=== PATIENT | female | born 1950 | race Caucasian/White ===

== ENCOUNTER → 2016-08-01 | Outpatient (CLI) | payer OTHER ==
[~2016-08-01] MED LIST: ASPI81TA28 PO; BETA0.1L2 TD; CITA10TA4 PO; ERYTTAB PO; ONDA8TAB12 PO; PRLSR20 PO; PROC1TAB5 PO; TRAM-10 PO; TRAZ50TA35 PO
--- NOTE | 2016-08-01 16:46 | MAMMOGRAPHY REPORT ---
BILATERAL DIGITAL SCREENING MAMMOGRAM WITH CAD: 08/01/2016 CLINICAL HISTORY: Routine screening. Patient has no complaints. TECHNIQUE: Bilateral CC and MLO views were obtained. Current study was also evaluated with a Comput er Aided Detection (CAD) system. COMPARISON: Comparison is made to exams dated: 07/30/2015 mammogram, 07/29/2014 mammogram, 07/25/2013 chela mogram, 07/18/2012 mammogram, 06/29/2011 mammogram, and 06/27/2010 ultrasound - [facility] ter. BREAST COMPOSITION: There are scattered areas of fibroglandular density in both breasts. FINDINGS: There are mild vascular calcifications in the breasts. No suspicious mass, architectural distortion or cluster of microcalcifications is seen. IMPRESSION: ACR BI-RADS CATEGORY 1: NEGATIVE There is no mammographic evidence of malignancy. A 1 year screening mammogram is recommended. The p atient will receive written notification of the results. Approximately 10% of breast cancers are not detected with mammography. A negative mammographic repor t should not delay biopsy if a clinically suggestive mass is present. Mellisa Miles M.D. ay/:08/01/2016 15:49:49 Medical Technologist: Adina GILES(Loraine)(Kavon), [facility] letter sent: Normal 1/2 BI-RADS Code: ACR BI-RADS Category 1: Negative
== END | disposition home or self-care (01) ==
LOC: C.MAMM 09:51
PROVIDERS: ATTEND Family Medicine
DX: Z12.31 Encounter for screening mammogram for malignant neoplasm of breast (principal)

== ENCOUNTER → 2016-10-26 | Outpatient (CLI) | payer OTHER ==
--- NOTE | 2016-10-26 09:21 | DIAGNOSTIC IMAGING REPORT ---
A-PORT CHECK CLINICAL HISTORY: Pain at the infusion port site following recent treatment. COMPARISON STUDY: Infusion port check dated 07/01/2014. Fluoroscopy time: 0.1 minutes. FINDINGS: A office sweeper fluoroscopic image shows a left subclavian central infusion port in place. The catheter appears intact and the tip projects over the SVC. Infusion port check was then performed following the injection of approximately 30 cc of Optiray 300 through the port. There is no extravasation. There is no evidence of catheter fracture or fibrin sheath. There is appropriate contrast filling of the superior vena cava. IMPRESSION: Normal infusion port check. The catheter is patent with no evidence of extravasation or fibrin sheath. Electronically signed by: Jelani Gavin M.D. 10/26/2016 9:20 AM Dictated Date/Time: 10/26/2016 9:17 AM
== END | disposition home or self-care (01) ==
LOC: C.RAD 08:23
PROVIDERS: ATTEND Internal Medicine Hematology & Oncology
DX: D80.1 Nonfamilial hypogammaglobulinemia (principal)

== ENCOUNTER → 2016-12-15 | Outpatient (CLI) | payer OTHER ==
[2016-12-20 00:46] LABS: ANTI-CENTROMERE AB <1.0 NEG AI (<1.0 NEG); ANTI-SS-A <1.0 NEG AI (<1.0 NEG); ANTI-SS-B <1.0 NEG AI (<1.0 NEG); DNA ds CRITHIDIA NEGATIVE (NEGATIVE); Sm Antibody <1.0 NEG AI (<1.0 NEG)
== END | disposition home or self-care (01) ==
LOC: C.LAB1850 10:01
PROVIDERS: ATTEND Internal Medicine Rheumatology
DX: M35.00 Sjogren syndrome, unspecified (principal); M54.5 Low back pain

== ENCOUNTER → 2017-05-24 | Outpatient (CLI) | payer OTHER ==
--- NOTE | 2017-05-24 13:03 | DIAGNOSTIC IMAGING REPORT ---
CT SCAN OF THE PARANASAL SINUSES CLINICAL HISTORY: Chronic sinusitis. COMPARISON STUDY: CT scan of the paranasal sinuses dated 10/07/2015. TECHNIQUE: High-resolution CT scan of the paranasal sinuses is performed. Images are reviewed in the axial, sagittal, and coronal planes. IV contrast was not administered for this examination. A dose lowering technique was utilized adhering to the principles of ALARA. CT DOSE: 661.11 mGy.cm FINDINGS: Maxillary antra: There is moderate mucosal thickening within air-fluid level seen in the right maxillary antrum. Trace dependent mucosal thickening is seen on the left. Anterior ethmoid sinuses: Moderate mucosal thickening seen in the right. Mild mucosal thickening is seen on the left. Posterior ethmoid sinuses: Clear bilaterally. Sphenoid sinuses: Trace mucosal thickening seen bilaterally. Frontal sinuses: Moderate mucosal thickening seen in the right. Mild mucosal thickening is seen on the left. Ostiomeatal complexes: The right ostiomeatal complex is occluded. The left ostiomeatal complex is narrowed by mucosal thickening but patent. Frontoethmoidal and sphenoethmoidal recesses: The sphenoethmoidal recesses are patent bilaterally. The frontoethmoidal recesses are occluded. Carotid arteries: The carotid arteries are protuberant but covered and without septal attachments. Ethmoid roofs: There is slightly asymmetric elevation of the right ethmoid roof as compared to the left. Nasal turbinates: Normal in appearance. Nasal septum: There is mild rightward deviation of the bony nasal septum. Optic nerves: Covered. Orbits: The bony orbits are intact. Orbital contents are normal in appearance. Calvarium: The skeletal structures are osteopenic. The imaged calvarium is normal in appearance Mastoid air cells: Well pneumatized. Brain parenchyma: Partially visualized brain parenchyma is within normal limits. IMPRESSION: Paranasal sinus disease as above. Correlate clinically for evidence of acute sinusitis. Electronically signed by: Jelani Gavin M.D. 05/24/2017 1:02 PM Dictated Date/Time: 05/24/2017 12:56 PM
== END | disposition home or self-care (01) ==
LOC: C.CTS 12:08
PROVIDERS: ATTEND Internal Medicine Hematology & Oncology
DX: D80.1 Nonfamilial hypogammaglobulinemia (principal); J01.90 Acute sinusitis, unspecified

== ENCOUNTER → 2017-06-18 | Outpatient (CLI) | payer OTHER ==
[~2017-06-18] MED LIST changes: +ASPCH81X PO; +CALC-51 PO; +KFL/250 PO
--- NOTE | 2017-06-18 09:04 | DIAGNOSTIC IMAGING REPORT ---
FUSION CT SINUSES W/O CLINICAL HISTORY: 66 years-old Female presenting with J32.9 Chronic [id number]. TECHNIQUE: Multidetector CT of the sinuses was performed without the use of intravenous contrast. IV contrast: None. A dose lowering technique was used consistent with the principles of ALARA (as low as reasonably achievable). COMPARISON: 10/07/2015. CT DOSE (mGy.cm): The estimated cumulative dose is 589.69 mGy.cm. FINDINGS: Intermediate Card Tender topogram: Unremarkable. Significant mucosal thickening of the right maxillary sinus with aerated secretions again noted. Sclerosis of the right apex or sinus holbrook. Mucosal thickening results in obstruction of the right ostiomeatal unit. The left maxillary sinus and left ostiomeatal unit are patent. Mild mucosal thickening in anterior ethmoid air cells with aerated secretions also noted more so on the left. The frontal sinuses are patent. However, the left nasofrontal ethmoidal recess is obstructed due to mucosal thickening. Sphenoid sinuses patent. Mastoid air cells patent. Trace rightward deviation of the bony nasal septum. No evidence of bony bridging or bony spurring. No bony dehiscence of the carotid siphons or optic canals. No other significant anatomic variants. Degenerative changes of the bilateral temporal mandibular joints. Orbits normal. Limited intracranial evaluation within normal limits. IMPRESSION: 1. Evidence of acute on chronic sinusitis of the right maxillary sinus. 2. Acute sinusitis of the anterior ethmoid air cells greater on the left. 3. Mucosal thickening results in obstruction of the right ostiomeatal unit and left nasal frontoethmoidal recess. 4. No significant anatomic variant. Electronically signed by: Gaudencio Love M.D. 06/18/2017 9:03 AM Dictated Date/Time: 06/18/2017 8:58 AM
== END | disposition home or self-care (01) ==
LOC: C.CTS 08:44
DX: J01.00 Acute maxillary sinusitis, unspecified (principal); J01.20 Acute ethmoidal sinusitis, unspecified; J34.89 Other specified disorders of nose and nasal sinuses

== ENCOUNTER → 2017-06-26 | Outpatient (CLI) | payer OTHER ==
[~2017-06-26] MED LIST changes: -ASPI81TA28 PO; -BETA0.1L2 TD; -ERYTTAB PO; -ONDA8TAB12 PO; -PROC1TAB5 PO; -TRAM-10 PO; -TRAZ50TA35 PO
[2017-06-26 13:10] LABS: BASO % 0.4 %; BASO ABS # 0.02 K/uL (0-0.2); EOS % 2.7 %; EOS ABS # 0.14 K/uL (0-0.5); HEMATOCRIT 40.3 % (37-47); IG# 0.01 K/uL (0.00-0.02); LYMPH % 24.1 %; LYMPH ABS # 1.26 K/uL (1.2-3.4); MEAN CELL VOLUME 91.4 fL (80-100); MEAN CORPUSCULAR HEMOGLOBIN 31.7 pg (25-34); MEAN CORPUSCULAR HGB CONC 34.7 g/dl (32-36); MEAN PLATELET VOLUME 9.2 fL (7.4-10.4); MONO % 7.6 %; PLATELET COUNT 168 K/uL (130-400); RED CELL DISTRIBUTION WIDTH CV 13.1 % (11.5-14.5); RED CELL DISTRIBUTION WIDTH SD 43.2 fL (36.4-46.3); WHITE BLOOD COUNT 5.23 K/uL (4.8-10.8)
[2017-06-26 13:17] LABS: INR 0.9 (0.9-1.1); PTT PATIENT 22.5 SECONDS (21.0-31.0)
[2017-06-26 13:37] LABS: POTASSIUM 4.4 mmol/L (3.5-5.1)
== END | disposition home or self-care (01) ==
LOC: C.LAB 11:28
DX: Z01.818 Encounter for other preprocedural examination (principal)

== ENCOUNTER → 2017-07-10 | Day surgery (SDC) | payer OTHER ==
[2017-06-21 15:11] VITALS: Ht 157.5 cm; Wt 85.5 kg
[~2017-07-10] VITALS: Ht 157.5 cm; Wt 85.5 kg
[~2017-07-10] MED LIST changes: +ATROPINE SULFATE 0.1 MG/ML 5ML SYR IV PRN; +CEFAZOLIN 2000MG IV PUSH 15 ML IV SCH; +DEXAMETHASONE SOD INJ 4 MG/ML VIAL ONE; +EpHEDrine SULFATE INJ 50 MG/ML AMP IV PRN; +EpINEphrine INJ 1MG/ML AMP 1 MG/ML AMP ONE; +FENTANYL CITRATE INJ 50 MCG/1 ML 2 ML VIAL IV PRN; +FENTANYL CITRATE INJ 50 MCG/1 ML 2 ML VIAL ONE; +GLYCOPYRROLATE INJ 0.2 MG/ML VIAL ONE; +HYDROCODONE/ACETAMIN 5/325MG TAB PO PRN; +LACTATED RINGER'S 1000ML 1,000 ML IV SCH; +LIDOCAINE 4% MPF SOAK 5 ML = 1 DOSE TOP ONE; +LIDOCAINE HCL 2% 2 ML VIAL (20MG/ML) ONE; +LIDOCAINE HCL 4% TOP 50 ML VIAL EXT ONE; +LIDOCAINE/EPINEPHRINE 1% 20 ML VIAL ONE; +MIDAZOLAM HCL 1 MG/ML 2ML VIAL ONE; +NEOSTIGMINE METHYLSULFATE 5 MG/5 ML SYR ONE; +ONDANSETRON INJ 2 MG/ML 2 ML VIAL IV PRN; +ONDANSETRON INJ 2 MG/ML 2 ML VIAL ONE; +OXYMETAZOLINE HCL 0.05% NA SPR 15 ML BTL PRN; +OXYMETAZOLINE HCL 0.05% NA SPR 15 ML BTL SCH; +PROPOFOL IV EMULSION 10 MG/ML 20 ML VIAL IV ONE; +TRIAMCINOLONE ACET 40 MG/ML VIAL ONE
--- NOTE | 2017-07-10 10:17 | History & Physical Bridge - SC ---
H&P Re-Evaluation Bridge Note: I have examined the patient, reviewed the History & Physical and in the interval since the performance of the History & Physical I have noted the following changes of clinical significance: No changes noted
--- NOTE | 2017-07-10 13:39 | [facility] Operative Report ---
Operative Report Operative Date Jul 10, 2017. Pre-Operative Diagnosis Chronic sinusitis Nasal septal deviation Hypertrophy of both inferior nasal turbinates Post-Operative Diagnosis Same as pre-op Procedure(s) Performed Image Guided Bilateral Endoscopic Sinus Surgery, Septoplasty, Bilateral Inferior Turbinate Reduction Surgeon Boat Loader Helper Surgeon(s) None Estimated Blood Loss 25ML Findings 1. MILD R DNS 2. MODERATE L>R ITH 3. PUS IN R MAX SINUS 4. MILD INFLAMMATION B FRONTAL/ETHMOID/MAXILLARY SINUSES WITH MORE SEVERE POLYPOID INFLAMMATION IN R MAX SINUS Specimens None Anesthesia Type General I attest to the content of the Intraoperative Record and any orders documented therein. Any exceptions are noted below.
--- NOTE | 2017-07-10 13:42 | Discharge Instructions ---
Discharge Instructions Date of Service Jul 10, 2017. Admission Reason for Admission: Chronic Sinusitis, Nasal Septal Deviation, Hypertr Discharge Discharge Diagnosis / Problem: SAME Discharge Goals Goal(s): Therapeutic intervention Activity Recommendations Activity Limitations: as noted below LIGHT ACTIVITY AND NO NOSE BLOWING FOR 2 WEEKS; NO DRIVING WHILE ON NORCO . Current Hospital Diet Patient's current hospital diet: Discharge Diet Recommended Diet: Regular Diet Procedures Procedures Performed: Image Guided Bilateral Endoscopic Sinus Surgery, Septoplasty, Bilateral Inferior Turbinate Reduction Pending Studies Studies pending at discharge: no Medical Emergencies . Who to Call and When: Medical Emergencies: If at any time you feel your situation is an emergency, please call 911 immediately. . Non-Emergent Contact Non-Emergency issues call your: Surgeon . . "Provider Documentation" section prepared by Ismael Blanco. .
--- NOTE | 2017-07-10 14:25 | OPERATIVE REPORT ---
DATE OF OPERATION: 07/10/2017 PREOPERATIVE DIAGNOSES: 1. Chronic rhinosinusitis. 2. Right septal deviation. 3. Left greater than right inferior turbinate hypertrophy. POSTOPERATIVE DIAGNOSES: 1. Chronic rhinosinusitis. 2. Right septal deviation. 3. Left greater than right inferior turbinate hypertrophy. PROCEDURES: SmashCharttronic fusion image guided bilateral endoscopic sinus surgery consisting of: 1. Bilateral maxillary antrostomies. 2. Bilateral complete ethmoidectomies. 3. Bilateral balloon sinuplasty assisted frontal sinusotomies. 4. Septoplasty. 5. Bilateral inferior turbinate outfracture and turbinoplasties. SURGEON: Dr. Blanco. ANESTHESIA: General endotracheal. ESTIMATED BLOOD LOSS: 25 mL. FINDINGS: 1. Mild right septal deviation. 2. Moderate left greater than right inferior turbinate hypertrophy. 3. Pus within the right maxillary sinus with severe polypoid mucosal thickening. 4. Mild mucosal thickening involving the left maxillary, bilateral ethmoid, and bilateral frontal sinuses. SPECIMENS: None. COMPLICATIONS: None. INDICATIONS FOR THE PROCEDURE: The patient is a pleasant 66-year-old female with a history of recurrent acute and chronic sinusitis which has been refractory to maximal medical therapy including systemic antibiotics and steroids. A posttreatment fusion CT scan of the sinuses revealed right greater than left maxillary sinusitis, mild bilateral ethmoid sinus disease, and mild bilateral inferior frontal sinus mucosal thickening. In addition, she has mild right septal deviation and moderate left greater than right inferior turbinate hypertrophy. She presents for the above-mentioned procedures on an outpatient elective basis. DESCRIPTION OF PROCEDURE: After informed consent had been obtained from the patient, the patient was wheeled to the operating room and placed on the operating table in supine position. Monitors were placed. After induction of general endotracheal anesthesia, the patient was prepped in the usual fashion for image guided bilateral endoscopic sinus surgery. The Fliplingo fusion headset was placed over the forehead and was registered, verified, and calibrated and used throughout the sinus surgery but especially for the frontal sinus portions. Lidocaine and epinephrine pledgets were placed in the bilateral nasal cavities and pressure applied. The left-sided pledgets were removed. A freer elevator was used to medialize the left middle turbinate. The uncinate process, lateral nasal wall, and left middle turbinate were injected with 1% lidocaine with 1:100,000 epinephrine. A lidocaine and epinephrine pledget was then placed into the left middle meatus. The right side was addressed in a similar fashion with similar intraoperative findings. The left side pledget was removed. An uncinatectomy was performed using a freer elevator, straight Misael-Cut forceps, and powered instrumentation. The natural ostium of the left maxillary sinus was identified and this was enlarged anteriorly, inferiorly, and posteriorly using backbiting forceps and powered instrumentation. A complete ethmoidectomy was then performed using powered instrumentation. Using the curved frontal sinus suction, left frontal sinus was cannulated. After this was performed, a size #6 frontal sinus balloon was inserted into the left frontal recess tract and dilated to 12 atmospheres of pressure in 3 different locations to dilate the left frontal recess tract. Polypoid mucosal thickening was then removed using powered instrumentation. A lidocaine and epinephrine pledget was then placed in the left ethmoid cavity. The right side was then addressed in a similar fashion; however, on this side, there was purulence and severe polypoid mucosal thickening involving the right maxillary sinus. The nasal septum was then injected with 1% lidocaine with 1:100,000 epinephrine. After allowing adequate time for vasoconstriction, a #15 scalpel was used to make a right Carmen incision through which the right-sided mucoperichondrial and mucoperiosteal flap was elevated. A #15 scalpel was then used to incise the quadrangular cartilages care to preserve a 1.5 cm dorsal and caudal strut and the left-sided mucoperichondrial and mucoperiosteal flap was elevated through this cartilaginous incision. Deviated portions of the quadrangular cartilage was then removed using a Kel knife. A V-shaped osteotome, mallet, and Abdelrahman forceps was then used to remove a bony septal spur which was impinging on the airway posteriorly and inferiorly on the right hand side. The septal cavity was then suctioned. The septum was found to be midline. The Norm incision and mucoperichondrial mucosal flaps were then closed using a 4-0 plain gut suture on a Eliel needle in a quilting stitch fashion. A Martino elevator was then used to infracture and subsequently outfracture the inferior turbinates bilaterally. The inferior turbinates were injected with 1% lidocaine with 1:100,000 epinephrine. A 2.0 mm turbinate blade using powered instrumentation was then used to perform bilateral inferior turbinoplasties in a submucosal fashion. The sinonasal cavities were then suctioned. Merogel was then placed into the bilateral ethmoid cavity/middle meati. An orogastric tube was placed and the stomach was suctioned free of air and stomach contents. This marked the end of the case. The patient tolerated the procedure well. There were no apparent complications. The patient was extubated and transferred to recovery room in stable condition. I attest to the content of the Intraoperative Record and any orders documented therein. Any exception s are noted below.
[2017-07-10 14:44] VITALS: TEMP 36.4
--- NOTE | 2017-07-10 15:04 | Anesthesiology Progress Note ---
Anesthesia Post Op Note Date & Time Jul 10, 2017 at 15:03 Vital Signs Pain Intensity: 5 Vital Signs Past 12 Hours Date Time Temp Pulse Resp B/P (MAP) Pulse Ox O2 Delivery O2 Flow Rate FiO2 07/10/17 14:44 36.4 61 16 07/10/17 14:44 61 16 96 07/10/17 14:41 135/64 07/10/17 14:39 67 18 92 07/10/17 14:39 67 18 07/10/17 14:36 144/66 07/10/17 14:34 59 21 99 07/10/17 14:34 58 21 07/10/17 14:31 140/69 07/10/17 14:29 63 16 07/10/17 14:29 64 16 100 07/10/17 14:26 148/72 07/10/17 14:24 68 28 100 07/10/17 14:24 68 28 07/10/17 14:21 147/70 07/10/17 14:19 79 14 07/10/17 14:19 79 14 100 07/10/17 14:16 147/71 07/10/17 14:15 143/90 07/10/17 14:14 81 100 07/10/17 14:14 81 07/10/17 14:14 36.3 80 20 143/90 100 Mask 6 07/10/17 09:22 36.6 73 18 137/81 (99) 97 Room Air Notes Mental Status: alert / awake / arousable, participated in evaluation Pt Amnestic to Procedure: Yes Nausea / Vomiting: adequately controlled Pain: adequately controlled Airway Patency, RR, SpO2: stable & adequate BP & HR: stable & adequate Hydration State: stable & adequate Anesthetic Complications: no major complications apparent Patient had some mild weakness at end of case due to residual neuromuscular blockade but was fully reversed and extubated, had no respiratory distress, no dysphagia, and was quite strong on discharge.
[2017-07-10 15:31] VITALS: BP 142/85; PULSE 61; O2SAT 96
== END | disposition home or self-care (01) ==
LOC: X.SURG 09:08
DX: J32.8 Other chronic sinusitis (principal); J34.2 Deviated nasal septum; J34.3 Hypertrophy of nasal turbinates; E78.5 Hyperlipidemia, unspecified; Z87.891 Personal history of nicotine dependence; Z98.890 Other specified postprocedural states; Z79.82 Long term (current) use of aspirin; Z79.899 Other long term (current) drug therapy; Z85.6 Personal history of leukemia; Z82.49 Family history of ischemic heart disease and other diseases of the circulatory system; Z82.3 Family history of stroke

== ENCOUNTER → 2017-08-03 | Outpatient (CLI) | payer OTHER ==
[~2017-08-03] MED LIST changes: -ASPCH81X PO; -ATROPINE SULFATE 0.1 MG/ML 5ML SYR IV PRN; -CEFAZOLIN 2000MG IV PUSH 15 ML IV SCH; -DEXAMETHASONE SOD INJ 4 MG/ML VIAL ONE; -EpHEDrine SULFATE INJ 50 MG/ML AMP IV PRN; -EpINEphrine INJ 1MG/ML AMP 1 MG/ML AMP ONE; -FENTANYL CITRATE INJ 50 MCG/1 ML 2 ML VIAL IV PRN; -FENTANYL CITRATE INJ 50 MCG/1 ML 2 ML VIAL ONE; -GLYCOPYRROLATE INJ 0.2 MG/ML VIAL ONE; -HYDROCODONE/ACETAMIN 5/325MG TAB PO PRN; -KFL/250 PO; -LACTATED RINGER'S 1000ML 1,000 ML IV SCH; -LIDOCAINE 4% MPF SOAK 5 ML = 1 DOSE TOP ONE; -LIDOCAINE HCL 2% 2 ML VIAL (20MG/ML) ONE; -LIDOCAINE HCL 4% TOP 50 ML VIAL EXT ONE; -LIDOCAINE/EPINEPHRINE 1% 20 ML VIAL ONE; -MIDAZOLAM HCL 1 MG/ML 2ML VIAL ONE; -NEOSTIGMINE METHYLSULFATE 5 MG/5 ML SYR ONE; -ONDANSETRON INJ 2 MG/ML 2 ML VIAL IV PRN; -ONDANSETRON INJ 2 MG/ML 2 ML VIAL ONE; -OXYMETAZOLINE HCL 0.05% NA SPR 15 ML BTL PRN; -OXYMETAZOLINE HCL 0.05% NA SPR 15 ML BTL SCH; -PROPOFOL IV EMULSION 10 MG/ML 20 ML VIAL IV ONE; -TRIAMCINOLONE ACET 40 MG/ML VIAL ONE
--- NOTE | 2017-08-07 08:42 | MAMMOGRAPHY REPORT ---
BILATERAL DIGITAL SCREENING MAMMOGRAM TOMOSYNTHESIS WITH CAD: 08/03/2017 CLINICAL HISTORY: Routine screening. TECHNIQUE: Breast tomosynthesis in addition to standard 2D mammography was performed. Current study was also evaluated with a Computer Aided Detection (CAD) system. COMPARISON: Comparison is made to exams dated: 08/01/2016 mammogram, 07/30/2015 mammogram, 07/29/2014 chela mogram, 07/25/2013 mammogram, 07/18/2012 mammogram, and 06/29/2011 mammogram - [facility] BREAST COMPOSITION: There are scattered areas of fibroglandular density in both breasts. FINDINGS: No suspicious masses, calcifications, or areas of architectural distortion are noted in ei ther breast. There has been no significant interval change compared to prior exams. Scattered bilater al benign-appearing calcifications are not significantly changed. IMPRESSION: ACR BI-RADS CATEGORY 2: BENIGN There is no mammographic evidence of malignancy. A 1 year screening mammogram is recommended. The pa tient will receive written notification of the results. Approximately 10% of breast cancers are not detected with mammography. A negative mammographic report should not delay biopsy if a clinically suggestive mass is present. Sherrie Hussein M.D. /:08/03/2017 14:32:31 Homicide Investigator: Haley GILES(R)(M), [facility] letter sent: Normal 1/2 BI-RADS Code: ACR BI-RADS Category 2: Benign
== END | disposition home or self-care (01) ==
LOC: C.MAMM 09:43
PROVIDERS: ATTEND Family Medicine
DX: Z12.31 Encounter for screening mammogram for malignant neoplasm of breast (principal)

== ENCOUNTER 2019-04-11 14:28 | Observation (INO) ==
[2019-04-11] MEDS ORDERED: ASPIRIN CHEW 324 MG PO STA (14:43)
[2019-04-11 14:52] LABS: Basophils # (auto) 0.04 K/uL (0-0.2); Basophils % (auto) 0.8 %; Eosinophils # (auto) 0.14 K/uL (0-0.5); Eosinophils % (auto) 2.8 %; Hematocrit (blood only) 37.7 % (37-47); Hemoglobin 13.2 g/dL (12.0-16.0); Immature Granulocytes # (auto) 0.01 K/uL (0.00-0.02); Immature Granulocytes % (auto) 0.2 %; Lymphocytes % (auto) 31.9 %; Mean Corpuscular Volume 91.3 fL (80-100); Mean Platelet Volume 8.8 fL (7.4-10.4); Monocytes # (auto) 0.39 K/uL (0.11-0.59); Monocytes % (auto) 7.8 %; Neutrophils # (auto) 2.83 K/uL (1.4-6.5); Neutrophils % (auto) 56.5 %; Platelet Count 186 K/uL (130-400); RDW Coefficient of Variation 13.2 % (11.5-14.5); RDW Standard Deviation 44.3 fL (36.4-46.3); Red Blood Count 4.13 M/uL (4.2-5.4); White Blood Count 5.01 K/uL (4.8-10.8)
[2019-04-11 15:06] LABS: Partial Thromboplastin Ratio 0.8; Partial Thromboplastin Time 22.8 Seconds (21.0-31.0); Prothrombin Time 9.9 Seconds (9.0-12.0)
[2019-04-11 15:08] LABS: BUN Creatinine Ratio 22.5 (10-20); Blood Urea Nitrogen 23 mg/dl (7-18); Calcium 9.2 mg/dl (8.5-10.1); Carbon Dioxide 27 mmol/L (21-32); Chloride 110 mmol/L (98-107); Creatinine Clr Calc Pharmacy 48.9 ml/min; Est GFR (African American) 64.5; Est GFR (Non-African American) 55.7; Glucose 81 mg/dl (70-99); Lipase 211 U/L (73-393); Potassium 3.5 mmol/L (3.5-5.1); Sodium 141 mmol/L (136-145)
[2019-04-11 15:13] LABS: Troponin I < 0.015 ng/ml (0-0.045)
[2019-04-11] MEDS ORDERED: OPTIRAY 320 125ml IV PRN (16:33)
--- NOTE | 2019-04-11 16:52 | CT Scan Report ---
CT angio chest PE protocol CLINICAL HISTORY: 68 years-old Female presenting with atypical chest pain, history of pulmonary embol us in. TECHNIQUE: Multidetector CT angiography of the chest was performed after administration of intravenou s contrast. 3-D volumetric and/or maximum intensity projection (MIP) images were subsequently reconst ructed for review. IV contrast: 119 mL of Optiray 320. One or more dose lowering techniques were used consistent with the principles of ALARA (as low as reasonably achievable), including automatic expos ure control, mA or kV adjustment to individual patient size, and/or use of iterative reconstruction. COMPARISON: CTA chest from 07/15/2014. CT DOSE (mGy.cm): The estimated cumulative dose is 274.16 mGy.cm. FINDINGS: Clerk Specialist topogram: Unremarkable. Pulmonary vasculature: The study is adequate for assessment of the pulmonary vascular tree. No filling defect within the pul monary arteries to suggest embolus. Main pulmonary artery is not enlarged. No flattening of the inter ventricular septum. No intracardiac filling defect. No reflux of contrast into the hepatic veins. Remaining chest: Soft tissues: Normal thyroid and thoracic inlet. No axillary, supraclavicular, mediastinal, or hilar lymphadenopathy. Normal aorta. Normal heart size. No pericardial or pleural effusion. Upper abdomen n ormal. Lungs and airways: No pneumothorax. Minimal bronchial wall thickening. Pulmonary arteries are not sig nificantly enlarged relative to adjacent bronchi. Trace interlobular septal thickening may be present . Minimal dependent changes likely atelectasis. Mosaic attenuation. Musculoskeletal: Normal osseous structures. IMPRESSION: 1. No evidence of pulmonary embolus. 2. Mosaic attenuation and minimal bronchial wall thickening could suggest reactive airways disease o r viral bronchiolitis. No focal infiltrate to suggest pneumonia. ACT 112: Negative or not required by law. Electronically signed by: Gaudencio Love M.D. 04/11/2019 4:50 PM
[2019-04-11] MEDS ORDERED: POTASSIUM CHLORIDE 20 MEQ TABCR PO STA (18:14)
--- NOTE | 2019-04-11 18:15 | History & Physical Report ---
Date of Service April 11, 2019 Assessment & Plan (1) Chest pain: Admit to PCU on telemetry for observation. Vital signs every 4 hours Troponin x3 with asset protection professional CBC CMP, magnesium pending Replenish electrolytes Appears to be atypical chest pain. Patient reports having ventricular tachy cardia on occasions. TTE in a.m. DVT prophylaxis Lovenox 40 mg subacute daily Full code Present on Admission?: Yes (2) Hairy cell leukemia: . Patient is in remission since 2014. Continue observing. Present on Admission?: Yes (3) PE (pulmonary embolism): Patient is not anticoagulation at this time. She was on anticoagulation from [id number] with Lovenox. Present on Admission?: Yes History of Present Illness Chief Complaint: Chest pain Primary Care Provider: Arlen Traore DO Patient is a 68 years old female with past medical history of Sjorgen syndrome, lupus, hairy cell leukemia, pulmonary embolism with infarction, osteoarthritis, who presents to the emergency room with chest pain that started this morning and continued on and off throughout the day. Patient reports the chest pain is occurring momentarily and goes away. Patient reports that chest pain is mostly in his left chest. Patient reports that she had V. tach's at some point. Patient reports that she is in remission of hairy cell leukemia since 2013. Patient describes pain as stabbing. Per patient pain radiates to her left shoulder. EKG patient is in normal sinus rhythm with QT interval of 378. Labs are reviewed: WBC is 5.01, hemoglobin 13.2, hematocrit 37.7, platelet 186, PT 9.9, INR 1, APTT 22.8, sodium 141, potassium 3.5, chloride 110, anion gap 4, BUN 23, creatinine 1.02, GFR 55.7, magnesium pending, troponin 0.015, lipase 211, TSH pending. CT of the chest showed no evidence of pulmonary embolus. Most like attenuation minimal bronchial wall thickening could suggest reactive airway disease or viral bronchiolitis. No focal infiltrate to suggest pneumonia. Patient was made to admit patient to PCU on telemetry and to rule out possible acute coronary syndrome versus atypical chest pain caused by esophageal spasm possibly. Allergies Allergy/AdvReac Type Severity Reaction Status Date / Time oxycodone AdvReac Mild GI Verified 04/11/19 15:02 SYMPTOMS, RASH Home Medications Home Medications Medication Instructions Recorded Confirmed Type cephalexin 250 mg PO QPM 05/28/19 12/20/19 History citalopram 10 mg PO QPM 09/17/18 04/11/19 History omeprazole 20 mg PO QAM 09/17/18 04/11/19 History aspirin [Aspir-81] 81 mg PO QPM 04/11/19 04/11/19 History Past Med/Surg History Medical History Hairy cell leukemia (Chronic) Lupus (Chronic) PE (pulmonary embolism) (Resolved) Sjogren's syndrome (Chronic) Surgical History History of thyroglossal duct cyst removal (Resolved) Social History Preferred Language: Estonian Communication Ability: Effective Professor Of Biblical Studies Required: No Beliefs That Will Affect Care: Christian Christian Beliefs: Methodist marital status: Current Living Situation: Spouse Other Information That Helps Us Care for You: No Feels Safe at Home: Yes Safety Concerns: Feels Safe At This Time Smoking Status: Never smoker Do You Dip or Chew Tobacco: No ; Second Hand Exposure: No ; Tobacco Cessation Education Requested by Patient: No Hx Alcohol Use: Yes Hx Substance Use: No Review of Systems Review of Systems: All systems reviewed & are unremarkable except as noted in HPI & below Physical Exam Constitutional: WD/WN, vitals as above well developed Eyes: PERRL, conjunctivae normal, anicteric sclerae ENMT: external ear and nose normal, oropharynx normal Neck: trachea midline, no thyromegaly Respiratory: normal respiratory effort, lungs clear to auscultation Cardiovascular: RRR, no murmur, no edema Gastrointestinal (Abdomen): normal bowel sounds, soft, nontender, no hepatosplenomegaly Musculoskeletal: no cyanosis or clubbing, extremities motor strength 5/5 Skin: no rashes, warm and dry Neurologic: patellar DTR's 2+ bilat, sensation intact Psychiatric: A+Ox3, euthymic affect Lymphatic: no cervical or axillary lymphadenopathy Results & Data Vital Signs (Past 12 Hours) Vital Signs Temp Pulse Pulse Resp BP BP Pulse Ox 04/11/19 17:19 58 L 19 134/72 99 04/11/19 16:15 59 L 14 117/67 96 04/11/19 16:00 61 15 04/11/19 15:50 62 16 04/11/19 15:40 62 15 04/11/19 15:30 60 21 04/11/19 15:20 63 17 04/11/19 15:10 62 17 04/11/19 15:00 68 20 04/11/19 14:50 66 19 04/11/19 14:43 97 04/11/19 14:41 66 21 04/11/19 14:32 36.4 C L 73 18 119/65 97 Code Status & VTE Plan Code Status Full code VTE Prophylaxis Plan VTE Prophylaxis will be ordered: Yes PG Care Time/CCT Total # of Minutes Spent Total Time Spent with Patient: Total time spent is greater than 50% in coordination of care (as documented) at patient's floor/unit and/or counseling patient:
[2019-04-11] MEDS ORDERED: MAGNESIUM HYDROXIDE SUSP 30 ML UDC PO PRN (19:49)
[2019-04-11] MEDS ORDERED: ALUMINUM/MAGNESIUM SUSP 30 ML UDC PO PRN (19:49)
[2019-04-11] MEDS ORDERED: POLYETHYLENE (MIRALAX) 17 GM PACK PO PRN (19:49)
[2019-04-11] MEDS ORDERED: SODIUM CHLORIDE 0.9% 1000ML 1,000 ML IV SCH (19:49)
[2019-04-11] MEDS ORDERED: NITROGLYCERIN SL 0.4 MG/TAB TAB SL PRN (19:49)
[2019-04-11] MEDS ORDERED: ACETAMINOPHEN 325 MG TAB PO PRN (19:49)
--- NOTE | 2019-04-11 19:50 | Emergency Department Note ---
Entered by Bailee Reese acting as a scribe for History of Present Illness General Chief complaint: Chest Pain Stated complaint: DISCOMFORT IN CHEST, REF BY Time Seen by Provider: 04/11/19 14:35 Source: patient History of Present Illness Onset (ago): day(s) 4 Location: chest Radiation: back Pain Consistency: + intermittent Maximum Pain Intensity: 4 Quality: + other (fluttering) Relieved By: + none Exacerbated By: + none Associated symptoms: no shortness of breath The patient is a 68 year old female who presents to the Emergency Room with complaints of intermittent chest pain starting 4 days ago. The patient states that for the past few days she has been having this fluttering feeling in her chest. She states that yesterday the pain that came with it started to become worse. She notes that it began to radiate to her back. She notes that she has a history of PEs, but states that this feels nothing like that. She notes a history of ventricular tachycardia and was on Metoprolol for a year before going off of it. The patient notes that she takes a baby aspirin daily. The patient denies anything making the pain better, anything making the pain worse, and shortness of breath. Home Medications Home Medications Medication Instructions Recorded Confirmed Type cephalexin 250 mg PO QPM 09/17/18 04/11/19 History citalopram 10 mg PO QPM 09/17/18 04/11/19 History omeprazole 20 mg PO QAM 09/17/18 04/11/19 History aspirin [Aspir-81] 81 mg PO QPM 04/11/19 04/11/19 History Allergies Allergy/AdvReac Type Severity Reaction Status Date / Time oxycodone AdvReac Mild GI Verified 04/11/19 15:02 SYMPTOMS, RASH Past Med/Surg History Medical History Hairy cell leukemia (Chronic) Lupus (Chronic) PE (pulmonary embolism) (Resolved) Sjogren's syndrome (Chronic) Surgical History History of thyroglossal duct cyst removal (Resolved) Family History (Updated 04/11/19 @ 19:05 by Bailee Reese) Other Family history non-contributory Social History Preferred Language: Libyan Communication Ability: Effective Canceling And Cutting Control Clerk Required: No Beliefs That Will Affect Care: Jehovah'S Witness Jehovah'S Witness Beliefs: Hinduism marital status: Current Living Situation: Spouse Feels Safe at Home: Yes Smoking Status: Never smoker Second Hand Exposure: No ; Hx Alcohol Use: Yes Hx Substance Use: No Review of Systems See HPI for pertinent positives & negatives. and A total of 10 systems reviewed and were otherwise negative Physical Exam Vital Signs Vital Signs - 24 hr 04/11/19 14:32 04/11/19 14:41 04/11/19 14:43 Temperature 36.4 C L Temperature Source Oral Pulse Rate 73 66 Pulse Rate [Finger] Pulse Rate from SpO2 Sensor Respiratory Rate 18 21 Blood Pressure 119/65 Blood Pressure [Right Arm] Blood Pressure Mean 83 Blood Pressure Mean [Right Arm] Pulse Oximetry 97 97 Oxygen Delivery Method Room Air Room Air Room Air Sepsis Recent Fever Within 48 Hours No Sepsis New/Unexplained Change in Mental Status No Sepsis Action Taken by Nursing No Action Required 04/11/19 14:50 04/11/19 15:00 04/11/19 15:10 Temperature Temperature Source Pulse Rate 66 68 62 Pulse Rate [Finger] Pulse Rate from SpO2 Sensor Respiratory Rate 19 20 17 Blood Pressure Blood Pressure [Right Arm] Blood Pressure Mean Blood Pressure Mean [Right Arm] Pulse Oximetry Oxygen Delivery Method Room Air Room Air Room Air Sepsis Recent Fever Within 48 Hours Sepsis New/Unexplained Change in Mental Status Sepsis Action Taken by Nursing 04/11/19 15:20 04/11/19 15:30 04/11/19 15:40 Temperature Temperature Source Pulse Rate 63 60 62 Pulse Rate [Finger] Pulse Rate from SpO2 Sensor Respiratory Rate 17 21 15 Blood Pressure Blood Pressure [Right Arm] Blood Pressure Mean Blood Pressure Mean [Right Arm] Pulse Oximetry Oxygen Delivery Method Room Air Room Air Room Air Sepsis Recent Fever Within 48 Hours Sepsis New/Unexplained Change in Mental Status Sepsis Action Taken by Nursing 04/11/19 15:50 04/11/19 16:00 04/11/19 16:10 Temperature Temperature Source Pulse Rate 62 61 60 Pulse Rate [Finger] Pulse Rate from SpO2 Sensor Respiratory Rate 16 15 16 Blood Pressure Blood Pressure [Right Arm] Blood Pressure Mean Blood Pressure Mean [Right Arm] Pulse Oximetry Oxygen Delivery Method Room Air Room Air Room Air Sepsis Recent Fever Within 48 Hours Sepsis New/Unexplained Change in Mental Status Sepsis Action Taken by Nursing 04/11/19 16:15 04/11/19 16:20 04/11/19 16:40 Temperature Temperature Source Pulse Rate 59 L 61 66 Pulse Rate [Finger] 59 L Pulse Rate from SpO2 Sensor 60 61 Respiratory Rate 17 13 17 Blood Pressure 117/67 Blood Pressure [Right Arm] 117/67 Blood Pressure Mean 82 Blood Pressure Mean [Right Arm] 83 Pulse Oximetry 97 98 Oxygen Delivery Method Room Air Room Air Room Air Sepsis Recent Fever Within 48 Hours Sepsis New/Unexplained Change in Mental Status Sepsis Action Taken by Nursing 04/11/19 16:41 04/11/19 16:50 04/11/19 17:00 Temperature Temperature Source Pulse Rate 67 69 62 Pulse Rate [Finger] Pulse Rate from SpO2 Sensor 67 68 62 Respiratory Rate 17 19 13 Blood Pressure 131/71 134/72 Blood Pressure [Right Arm] Blood Pressure Mean 93 91 Blood Pressure Mean [Right Arm] Pulse Oximetry 99 98 98 Oxygen Delivery Method Room Air Room Air Room Air Sepsis Recent Fever Within 48 Hours Sepsis New/Unexplained Change in Mental Status Sepsis Action Taken by Nursing 04/11/19 17:01 04/11/19 17:10 04/11/19 17:19 Temperature Temperature Source Pulse Rate 63 70 Pulse Rate [Finger] 58 L Pulse Rate from SpO2 Sensor 63 Respiratory Rate 18 15 19 Blood Pressure Blood Pressure [Right Arm] 134/72 Blood Pressure Mean Blood Pressure Mean [Right Arm] 92 Pulse Oximetry 98 99 Oxygen Delivery Method Room Air Room Air Room Air Sepsis Recent Fever Within 48 Hours Sepsis New/Unexplained Change in Mental Status Sepsis Action Taken by Nursing 04/11/19 17:20 04/11/19 17:30 04/11/19 17:31 Temperature Temperature Source Pulse Rate 60 70 60 Pulse Rate [Finger] Pulse Rate from SpO2 Sensor 60 67 63 Respiratory Rate 15 15 16 Blood Pressure 126/75 Blood Pressure [Right Arm] Blood Pressure Mean 93 Blood Pressure Mean [Right Arm] Pulse Oximetry 98 98 98 Oxygen Delivery Method Room Air Room Air Room Air Sepsis Recent Fever Within 48 Hours Sepsis New/Unexplained Change in Mental Status Sepsis Action Taken by Nursing 04/11/19 17:40 04/11/19 17:50 04/11/19 18:00 Temperature Temperature Source Pulse Rate 61 61 54 L Pulse Rate [Finger] Pulse Rate from SpO2 Sensor 61 61 54 L Respiratory Rate 16 17 16 Blood Pressure 142/75 H Blood Pressure [Right Arm] Blood Pressure Mean 97 Blood Pressure Mean [Right Arm] Pulse Oximetry 99 99 99 Oxygen Delivery Method Room Air Room Air Room Air Sepsis Recent Fever Within 48 Hours Sepsis New/Unexplained Change in Mental Status Sepsis Action Taken by Nursing 04/11/19 18:01 04/11/19 18:10 Temperature Temperature Source Pulse Rate 56 L 54 L Pulse Rate [Finger] Pulse Rate from SpO2 Sensor 56 L 57 L Respiratory Rate 14 16 Blood Pressure Blood Pressure [Right Arm] Blood Pressure Mean Blood Pressure Mean [Right Arm] Pulse Oximetry 99 99 Oxygen Delivery Method Room Air Room Air Sepsis Recent Fever Within 48 Hours Sepsis New/Unexplained Change in Mental Status Sepsis Action Taken by Nursing GENERAL: She is oriented to person, place, and time. She appears well-developed and well-nourished. She does not appear distressed. HENT: Exam performed. - Head: Normocephalic and atraumatic. - Right Ear: External ear normal. No mastoid tenderness. - Left Ear: External ear normal. No mastoid tenderness. - Mouth/Throat: The oropharynx is clear and moist. No trismus in the jaw. No dental abscesses or uvula swelling. No oropharyngeal exudate or tonsillar abscesses. EYES: Conjunctivae and EOM are normal. Pupils are equal, round, and reactive to light. Right eye exhibits no discharge. Left eye exhibits no discharge. No scleral icterus. NECK: Normal range of motion. Neck supple. No JVD present. No spinous process tenderness present. No carotid bruit present. No rigidity. No tracheal deviation and normal range of motion present. No Brudzinski's sign and no Kernig's sign noted. CV: Normal rate, regular rhythm, normal heart sounds and intact distal pulses. There is no peripheral edema. Palpable radial pulses bue. PULM/CHEST: Effort normal and breath sounds normal. No respiratory distress. No stridor. She has no wheezes. She has no rales. Chest Wall: She exhibits no tenderness. ABD: The abdomen is soft. Bowel sounds are normal. She has no distension. No mass is present. There is no tenderness. There is no rebound, no guarding, no Calderon's sign and no tenderness at McBurney's point. Rovsig negative MUSC/SKEL: Normal range of motion. There is no peripheral edema, tenderness or deformity. LYMPH: No cervical adenopathy. NEURO: She is alert and oriented to person, place, and time. She has normal strength. No cranial nerve deficit or sensory deficit. Coordination and gait normal. GCS eye subscore is 4. GCS verbal subscore is 5. GCS motor subscore is 6. cerbellar tests wnl. SKIN: Skin is warm and dry. She is not diaphoretic. PSYCH: She has a normal mood and affect. Her behavior is normal. Judgment and thought content normal. Course Course 1438: The patient was evaluated in room A9B. A complete history and physical exam was performed. 1701: Vital signs stable. Labs and imaging are within normal limits. The patient is at moderate risk for ACS. She will be bought in for observation for chest pain and rule out ACS. I [facility] the [facility] She will evaluate the patient for further management. Administered Medications Ioversol (Optiray 320 125ml) 119 ml IV ONCE PRN PRN Reason: Interaction Checking Stop: 04/15/19 16:32 Last Admin: 04/11/19 16:33 Dose: 1 ml Documented by: [id number] Discontinued Medications Aspirin (Aspirin) 324 mg PO NOW STA Stop: 04/11/19 14:44 Last Admin: 04/11/19 14:57 Dose: 324 mg Documented by: [id number] Potassium Chloride (Klor-Con M20) 40 meq PO NOW STA Stop: 04/11/19 18:15 Last Admin: 04/11/19 18:32 Dose: 40 meq Documented by: [id number] Medical Decision Making Medical Records Attestation: I reviewed the patient's medical records. Home Medications Current Medication List: was personally reviewed by me Laboratory Data Attestation: I reviewed the patient's lab results. Result diagrams: 04/11/19 14:45 04/11/19 14:45 Lab Results 04/11/19 04/11/19 04/11/19 Range/Units 14:45 14:45 14:45 WBC 5.01 (4.8-10.8) K/uL RBC 4.13 L (4.2-5.4) M/uL Hgb 13.2 (12.0-16.0) g/dL Hct 37.7 (37-47) % MCV 91.3 (80-100) fL MCH 32.0 (25-34) pg MCHC 35.0 (32-36) g/dL RDW Std Deviation 44.3 (36.4-46.3) fL RDW Coeff of Cassie 13.2 (11.5-14.5) % Plt Count 186 (130-400) K/uL MPV 8.8 (7.4-10.4) fL Immature Gran % (Auto) 0.2 % Neut % (Auto) 56.5 % Lymph % (Auto) 31.9 % Hopkins % (Auto) 7.8 % Eos % (Auto) 2.8 % Baso % (Auto) 0.8 % Immature Gran # (Auto) 0.01 (0.00-0.02) K/uL Neut # (Auto) 2.83 (1.4-6.5) K/uL Lymph # (Auto) 1.60 (1.2-3.4) K/uL Hopkins # (Auto) 0.39 (0.11-0.59) K/uL Eos # (Auto) 0.14 (0-0.5) K/uL Baso # (Auto) 0.04 (0-0.2) K/uL PT 9.9 (9.0-12.0) Seconds INR 1.0 (0.9-1.1) APTT 22.8 (21.0-31.0) Seconds PTT Ratio 0.8 Sodium 141 (136-145) mmol/L Potassium 3.5 (3.5-5.1) mmol/L Chloride 110 H (98-107) mmol/L Carbon Dioxide 27 (21-32) mmol/L Anion Gap 4.0 (3-11) BUN 23 H (7-18) mg/dl Creatinine 1.02 (0.6-1.2) mg/dl Est Cr Clr Drug Dosing 48.9 ml/min Est GFR ( Amer) 64.5 Est GFR (Non-Af Amer) 55.7 BUN/Creatinine Ratio 22.5 H (10-20) Glucose 81 (70-99) mg/dl Calcium 9.2 (8.5-10.1) mg/dl Troponin I < 0.015 (0-0.045) ng/ml Lipase 211 (73-393) U/L Imaging Data Radiologist's Impression: Radiology results as stated below per my review and the radiologist's interpretation: CT angio chest PE protocol CLINICAL HISTORY: 68 years-old Female presenting with atypical chest pain, history of pulmonary embolus in. TECHNIQUE: Multidetector CT angiography of the chest was performed after administration of intravenous contrast. 3-D volumetric and/or maximum intensity projection (MIP) images were subsequently reconstructed for review. IV contrast: 119 mL of Optiray 320. One or more dose lowering techniques were used consistent with the principles of ALARA (as low as reasonably achievable), including automatic exposure control, mA or kV adjustment to individual patient size, and/or use of iterative reconstruction. COMPARISON: CTA chest from 07/15/2014. CT DOSE (mGy.cm): The estimated cumulative dose is 274.16 mGy.cm. FINDINGS: Documentation Spec topogram: Unremarkable. Pulmonary vasculature: The study is adequate for assessment of the pulmonary vascular tree. No filling defect within the pulmonary arteries to suggest embolus. Main pulmonary artery is not enlarged. No flattening of the interventricular septum. No intracardiac filling defect. No reflux of contrast into the hepatic veins. Remaining chest: Soft tissues: Normal thyroid and thoracic inlet. No axillary, supraclavicular, mediastinal, or hilar lymphadenopathy. Normal aorta. Normal heart size. No pericardial or pleural effusion. Upper abdomen normal. Lungs and airways: No pneumothorax. Minimal bronchial wall thickening. Pulmonary arteries are not significantly enlarged relative to adjacent bronchi. Trace interlobular septal thickening may be present. Minimal dependent changes likely atelectasis. Mosaic attenuation. Musculoskeletal: Normal osseous structures. IMPRESSION: 1. No evidence of pulmonary embolus. 2. Mosaic attenuation and minimal bronchial wall thickening could suggest reactive airways disease or viral bronchiolitis. No focal infiltrate to suggest pneumonia. ACT 112: Negative or not required by law. Electronically signed by: Gaudencio Love M.D. 04/11/2019 4:50 PM ECG Data Attestation: I personally reviewed and interpreted this ECG as follows: Indication: + chest pain Rate (beats per minute): 71 Rhythm: + sinus rhythm ECG Intervals/blocks: + Normal QRS, + Normal MN and + Normal QT-c ECG ST segments: no ST depression and no ST elevation Blood Pressure Blood Pressure Findings: Elevated blood pressure Blood Pressure Disposition: further management by hospitalist [facility] Narrative : Vital signs stable. Labs and imaging are within normal limits. The patient is at moderate risk for ACS. She will be bought in for observation for chest pain and rule out ACS. I discussed the patient's case with Dr. Shafer- [facility] Hospitalist. She will evaluate the patient for further management. Impression & Plan Chest pain Discharge Plan Visit Data *Final* Discharge Date/Time: 04/11/19 19:21 Chief Complaint: Chest Pain Stated Complaint: DISCOMFORT IN CHEST, REF BY ED Provider: Luis Hale Discharge Problem: Chest pain Patient Disposition: Admitted As Inpatient Discharge Instructions Interventions: ED Discharge Assessment Last Done: 04/11/19 19:21 Discharge Problem: Chest pain Qualifiers: Chest pain type: unspecified Qualified Code(s): R07.9 - Chest pain, unspecified The scribe's documentation has been prepared under my direction and personally reviewed by me in its entirety. I confirm that the note above accurately reflects all work, treatment, procedures, and medical decision making performed by me.
[2019-04-11 20:41] LABS: Magnesium 2.3 mg/dl (1.8-2.4); Thyroid Stimulating Hormone 0.91 uIu/ml (0.300-4.500)
[2019-04-11] MEDS ORDERED: CITALOPRAM 20 MG TAB PO SCH (21:00)
[2019-04-12 02:01] LABS: Basophils # (auto) 0.05 K/uL (0-0.2); Basophils % (auto) 1.1 %; Eosinophils # (auto) 0.18 K/uL (0-0.5); Eosinophils % (auto) 3.8 %; Hematocrit (blood only) 34.4 % (37-47); Hemoglobin 11.7 g/dL (12.0-16.0); Immature Granulocytes # (auto) 0.01 K/uL (0.00-0.02); Immature Granulocytes % (auto) 0.2 %; Lymphocytes # (auto) 1.73 K/uL (1.2-3.4); Lymphocytes % (auto) 36.6 %; Mean Platelet Volume 8.7 fL (7.4-10.4); Monocytes # (auto) 0.52 K/uL (0.11-0.59); Neutrophils # (auto) 2.24 K/uL (1.4-6.5); Neutrophils % (auto) 47.3 %; Platelet Count 144 K/uL (130-400); RDW Coefficient of Variation 13.3 % (11.5-14.5); RDW Standard Deviation 43.9 fL (36.4-46.3); Red Blood Count 3.78 M/uL (4.2-5.4); White Blood Count 4.73 K/uL (4.8-10.8)
[2019-04-12 02:18] LABS: Alanine Aminotransferase 23 U/L (12-78); Albumin Level 2.8 gm/dl (3.4-5.0); Aspartate Aminotransferase 13 U/L (15-37); BUN Creatinine Ratio 22.5 (10-20); Blood Urea Nitrogen 19 mg/dl (7-18); Calcium 8.2 mg/dl (8.5-10.1); Carbon Dioxide 25 mmol/L (21-32); Chloride 113 mmol/L (98-107); Est GFR (African American) 79.3; Est GFR (Non-African American) 68.4; Glucose 89 mg/dl (70-99); Potassium 3.9 mmol/L (3.5-5.1); Sodium 140 mmol/L (136-145)
[2019-04-12 02:23] LABS: Albumin Globulin Ratio 0.8 (0.9-2); Alkaline Phosphatase 66 U/L (45-117); Bilirubin,Total 0.4 mg/dl (0.2-1); Chol HDL Ratio 4; Cholesterol 153 mg/dl (0-200); Globulin 3.7 gm/dl (2.5-4.0); HDL Cholesterol 38 mg/dl; LDL Cholesterol Calculated 90 mg/dl; Total Protein 6.5 gm/dl (6.4-8.2); Triglycerides 126 mg/dl (0-150); Troponin I < 0.015 ng/ml (0-0.045); VLDL Cholesterol 25 mg/dl
[2019-04-12 06:08] LABS: Estimated Average Glucose 85 mg/dl; Hemoglobin A1C 4.6 % (4.5-5.6)
[2019-04-12] MEDS ORDERED: ENOXAPARIN INJ 40 MG/0.4 ML SYR SQ SCH (09:00)
[2019-04-12] MEDS ORDERED: PANTOprazole 40 MG TAB PO SCH (09:00)
--- NOTE | 2019-04-12 13:07 | Discharge Summary ---
Date of Service April 12, 2019 Admission HPI Per Admitting Provider Patient is a 68 years old female with past medical history of Sjorgen syndrome, lupus, hairy cell leukemia, pulmonary embolism with infarction, osteoarthritis, who presents to the emergency room with chest pain that started this morning and continued on and off throughout the day. Patient reports the chest pain is occurring momentarily and goes away. Patient reports that chest pain is mostly in his left chest. Patient reports that she had V. tach's at some point. Patient reports that she is in remission of hairy cell leukemia since 2013. Patient describes pain as stabbing. Per patient pain radiates to her left shoulder. EKG patient is in normal sinus rhythm with QT interval of 378. Labs are reviewed: WBC is 5.01, hemoglobin 13.2, hematocrit 37.7, platelet 186, PT 9.9, INR 1, APTT 22.8, sodium 141, potassium 3.5, chloride 110, anion gap 4, BUN 23, creatinine 1.02, GFR 55.7, magnesium pending, troponin 0.015, lipase 211, TSH pending. CT of the chest showed no evidence of pulmonary embolus. Most like attenuation minimal bronchial wall thickening could suggest reactive airway disease or viral bronchiolitis. No focal infiltrate to suggest pneumonia. Patient was made to admit patient to PCU on telemetry and to rule out possible acute coronary syndrome versus atypical chest pain caused by esophageal spasm possibly. Principal Diagnosis chest pain - no evidence of ACS; negative stress test Discharge Exam Constitutional well developed and well nourished; no acute distress and no altered mental status ENMT external ear and nose normal, oropharynx normal Respiratory normal respiratory effort, lungs clear to auscultation Cardiovascular Rate/Rhythm: regular rate and regular rhythm Heart Sounds: normal S1 and normal S2; no murmur Vessels: posterior tibial pulses present and dorsalis pedis pulses present; no JVD Extremities: no edema Chest (Breasts) Additional Comments: mild pain with palpation but she reports it is a different pain than what brought her to the hospital Gastrointestinal (Abdomen) normal bowel sounds, soft, nontender, no hepatosplenomegaly Skin no rashes, warm and dry Psychiatric A+Ox3, euthymic affect Discharge Data Allergies Allergy/AdvReac Type Severity Reaction Status Date / Time oxycodone AdvReac Mild GI Verified 04/11/19 15:02 SYMPTOMS, RASH Ordered Studies 1. CT angio chest PE protocol -- NEGATIVE for PE. 2. echocardiogram - EF 65-70%; no diastolic dysfunction. Normal valve function. No wall motion abnormalities. 3. exercise stress echocardiogram - no inducible wall motion abnormalities or ischemia. Chest discomfort was reported early on during the exercise stress test but resolved at peak exercise. Hospital Course (1) Chest pain: Was unlikely to be cardiac in nature given her negative troponins, normal telemetry, normal EKG, normal echo, and negative stress echocardiogram. PE was ruled out with CTA chest. Differential for her pain - reflux disease, esophageal spasm, extra beats/arrhythmia, or musculoskeletal chest wall pain. At discharge I advised the following - * cut down on caffeine consumption (was consuming 1-1.5 pots of coffee/day) * INCREASE omeprazole to 40mg once daily in the event her pain was GI-related * speak with PCP about perhaps obtaining a 30-day event monitor as she reported "fluttering" of her heart when she had the chest pain episodes * consideration of GI consultation for EGD (2) Hairy cell leukemia: Patient in remission since 2014. CBC wnl while hospitalized. (3) PE (pulmonary embolism): History of such. She was on anticoagulation from [id number] with Lovenox. Again CTA chest did NOT show PE during this admission. Total Time Total Time Spent Total Time Spent (In Minutes): 40 Total Time Includes: Examination of the Patient, Discharge Planning, Medication Reconciliation and Communication With Other Providers (cardiology ) Discharge Plan Discharge Items Patient Disposition: Home - Self-Care Reason For Visit: CHEST PAIN Discharge Diagnosis: chest pain -- heart attack ruled out; negative stress test and normal heart ultrasound (echocardiogram) Activity: As commented below Activity Comment: take it easy today, then gradually increase activities Non-emergency contact: Primary Care Provider Call non-emergency contact if: you have any medication questions, your symptoms worsen, your pain is not controlled, your pain is worsening, your pain is unusual for you and your pain is concerning for you Follow-up/Referrals: Arlen Traore DO [Primary Care Provider] - (see Dr Traore within 1 week) Diet: Regular Addtl Attending Provider Instructions: You were admitted for brief episodes of left-sided chest discomfort. Some of these episodes had been associated with "heart fluttering." Fortunately the blood tests for your heart DID not show evidence of heart attack. Your heart monitoring was normal. Your CAT scan of the lungs did not show blood clots (PEs). Your EKGs were normal. You underwent a stress test and this was normal. The stress test tries to determine if you are having poor blood flow through the arteries of your heart (blocked arteries). Having a normal/negative stress test suggests that the arteries are not blocked and are healthy. The possibilities for your chest pain include reflux disease, esophageal spasm, extra beats/irregular heart beating, chest wall muscle pain, etc. Excessive amounts of coffee can make reflux disease, esophageal spasm, and extra beats of the heart all worse. Please reduce your total coffee intake to 4-5 cups per day or less. Please INCREASE your omeprazole to 40mg once daily for 30 days, then go back to your previous dose of 20mg/day. Follow-up with Dr Traore this week. She potentially may recommend a GI referral to you for upper endoscopy, wearing a 30-day heart monitor, etc. Return to [facility] if -- * you have shortness of breath at rest or with exertion * your chest pain episodes are becoming more frequent or more intense * you have fevers over 100.5 degrees * you develop nausea, vomiting, left arm pain, jaw pain, neck pain, etc. * any other concerns Pending Studies at Discharge: No Stand-Alone Forms: Call Back Authorization, [facility], Smoking Cessation Medications and DC Order Prescriptions: New omeprazole 40 mg capsule,delayed release(DR/EC) 40 mg PO DAILY Qty: 30 RF: 0 Continued citalopram 10 mg tablet 10 mg PO QPM RF: 0 cephalexin 250 mg capsule 250 mg PO QPM RF: 0 aspirin [Aspir-81] 81 mg Tablet,Delayed Release (Dr/Ec) 81 mg PO QPM RF: 0 Discharge Orders: Discharge Order (Routine); Ordered 04/12/19 Ordered By: Jeffrey Oates Admission Data Admit Date/Time: 04/11/19 18:12 Attending Provider: Jeffrey Oates Admit Provider: Catrachita Shafer Primary Care Provider: Arlen Traore Other Providers: Catrachita Shafer Other Interventions: Discharge Summary Assessment (RN) Last Done: 04/12/19 13:12 DC Date/Time DO NOT enter until pt leaves facility: 04/12/19 14:05
[2019-04-12] MEDS ORDERED: ASPIRIN 81 MG ECTAB PO SCH (21:00)
== END 2019-04-12 14:05 | disposition home or self-care (01) ==
LOC: ED 14:28 → 2E 18:12 → INTOOBSV 18:12 → SUATTDRO 18:12 → 2E 19:21